=== PATIENT | female | born 1990 | race Caucasian/White ===

== ENCOUNTER 2017-02-28 22:09 | Inpatient (IN) | payer OTHER ==
[~2017-02-28] VITALS: Ht 160 cm; Wt 77.1 kg
[2017-03-01 00:34] LABS: BASOPHIL % 0.4 % (0-2); PLATELET COUNT 207 x10^3mcL (130-400); RED CELL DISTRIBUTION WIDTH 12.8 % (11.5-14.5)
[2017-03-01 00:51] LABS: CALCIUM 8.7 mg/dL (8.5-10.1); CHLORIDE SERUM 103 mmol/L (98-107); CREATININE SERUM 0.6 mg/dL (0.6-1.0); GFR1 > 60 mL/min; GLUCOSE SERUM 94 mg/dL (74-106); POTASSIUM SERUM 3.6 mmol/L (3.5-5.1); SODIUM SERUM 141 mmol/L (136-145)
[2017-03-01 00:55] LABS: ALBUMIN 3.5 g/dL (3.4-5.0); ALKALINE PHOSPHATASE 80 U/L (46-116); ALT/SGPT 72 U/L (14-59); AST/SGOT 81 U/L (15-37); BILIRUBIN TOTAL 0.4 mg/dL (0.20-1.00); LIPASE 156 IU/L (73-393); TOTAL PROTEIN, SERUM 7.2 g/dL (6.4-8.2)
[2017-03-01 04:21] LABS: microscopic required? YES; urine erythrocyte TRACE (NEGATIVE)
[2017-03-01 04:30] LABS: AMPHETAMINE QUAL UR NONE DETECTED (NEG <=1000)
[2017-03-01] MEDS ORDERED: BENTYL10 MG (04:31)
[2017-03-01 05:29] VITALS: BP 111/72
[2017-03-01 05:36] LABS: CHOLESTEROL/HDL RATIO 2.7
[2017-03-01 05:41] LABS: T3 TOTAL 1.14 ng/mL
[2017-03-01 06:26] LABS: FREE T4 1.24 ng/dL (0.76-1.46); FREE THYROXINE INDEX 3.2 ug/dL (1.4-4.5); T4(THYROXINE) 9.6 ug/dL (4.7-13.3)
[2017-03-01 09:07] VITALS: BP 109/65
[2017-03-01 11:10] VITALS: BP 121/81
[2017-03-01 13:55] VITALS: BP 115/63
[2017-03-01 17:03] VITALS: BP 111/66
[2017-03-01 21:36] VITALS: BP 123/50
[2017-03-02 05:31] VITALS: BP 107/62
[2017-03-02 08:57] LABS: BASOPHIL % 0.2 % (0-2); PLATELET COUNT 190 x10^3mcL (130-400); RED CELL DISTRIBUTION WIDTH 13.1 % (11.5-14.5)
[2017-03-02 08:58] LABS: CALCIUM 8.2 mg/dL (8.5-10.1); CARBON DIOXIDE 27.8 mmol/L (21-32); CHLORIDE SERUM 105 mmol/L (98-107); CREATININE SERUM 0.6 mg/dL (0.6-1.0); GFR1 > 60 mL/min; GLUCOSE SERUM 97 mg/dL (74-106); POTASSIUM SERUM 3.7 mmol/L (3.5-5.1); SODIUM SERUM 142 mmol/L (136-145)
[2017-03-02 11:00] VITALS: BP 99/59
[2017-03-02 17:59] VITALS: BP 110/71
[2017-03-02 20:58] VITALS: BP 110/68
[2017-03-03 05:50] VITALS: BP 99/52
[2017-03-03 07:17] LABS: BASOPHIL % 0.5 % (0-2); PLATELET COUNT 180 x10^3mcL (130-400); RED CELL DISTRIBUTION WIDTH 13.2 % (11.5-14.5)
[2017-03-03 09:04] VITALS: BP 98/57
[2017-03-03] MEDS ORDERED: GAS RELIEF80 MG CH (11:42)
[2017-03-03] MEDS ORDERED: MOT800 PO (11:42)
[2017-03-03] MEDS ORDERED: COL100 PO (11:42)
[2017-03-03] MEDS ORDERED: NOR10T PO (11:43)
[2017-03-03 15:41] VITALS: BP 98/57
== END 2017-03-03 16:45 | disposition home or self-care (01) | DRG 263 ==
LOC: ED 22:09 → DU 03-01 03:47 → MU 03-01 03:47 → DU 03-01 05:19 → MU 03-02 09:54
PROVIDERS: Emergency Medicine; Surgery; ADMIT Family Medicine
PROC: 0F9940Z Drainage of Common Bile Duct with Drainage Device, Percutaneous Endoscopic Approach (ICD-10-PCS; 2017-03-01)
PROC: 0FT44ZZ Resection of Gallbladder, Percutaneous Endoscopic Approach (ICD-10-PCS; principal; 2017-03-01 12:00)
DX: K80.00 Calculus of gallbladder with acute cholecystitis without obstruction (principal)
CPT/HCPCS: 80307; 83880; 84439; G0480; J0690; J0696; J1170; J1644; J1885; J2250; J2270; J2405; J2765; J3010; J3490; J7030; Q0092